=== PATIENT | male | born 1950 | race Caucasian/White ===

== ENCOUNTER 2016-09-22 10:49 | Emergency (ER) | payer BC, OTHER ==
[2016-09-22 11:22] VITALS: BP 135/87; PULSE 84; TEMP 97.7; BMI 24.0
[2016-09-22] MEDS ORDERED: IBUPROFEN 600 MG TABLET (FP) PO ONE ×2 (12:14→12:16)
--- NOTE | 2016-09-22 12:20 | PDOC ---
History of Present Illness - General Chief Complaint: Injury Stated Complaint: FALL, LT ARM PAIN Time Seen by Provider: 09/22/16 11:58 History Source: Patient Exam Limitations: No Limitations - History of Present Illness Initial Comments: 09/22/16 12:14 66-year-old male with no past medical history presents the ED with complaints of left arm and left shoulder pain after falling at work at the [employer]. Patient states tripped and landed on his elbow causing discomfort to the affected area and to his left shoulder. Patient denies previous injury to the affected area and denies any sensory changes distally patient states is able to move the arm but has pain with lateral movement. Patient states on no blood thinners or has no clotting disorders. Occurred: reports: just prior to arrival Severity: reports: mild Pain Location: reports: upper extremity Method of Injury: Yes: fall Modifying Factors: improves with: None Loss of Consciousness: no loss of consciousness Associated Symptoms (Fall): denies symptoms Past History - Past Medical History Allergies/Adverse Reactions: Allergies Allergy/AdvReac Type Severity Reaction Status Date / Time No Known Allergies Allergy Verified 09/22/16 11:21 Home Medications: Ambulatory Orders NK [No Known Home Medication] 09/22/16 Hypercholesterolemia: Yes - Psycho/Social/Smoking Cessation Hx Suicidal Ideation: No Smoking History: Never smoked Patient Lives Alone: No Lives with/in: spouse/SO Review of Systems - Review of Systems Able to Perform ROS?: Yes Constitutional: No: Symptoms Reported Respiratory: No: Symptoms reported Cardiac (ROS): No: Symptoms Reported Musculoskeletal: Yes: Joint Pain (left shoulder). No: Back Pain, Muscle Pain, Neck Pain Integumentary: No: Symptoms Reported, Bruising, Erythema Neurological: No: Symptoms reported, Numbness, Tingling *Physical Exam - Vital Signs Last Vital Signs Temp Pulse Resp BP Pulse Ox 97.7 F 84 18 135/87 99 09/22/16 11:18 09/22/16 11:18 09/22/16 11:18 09/22/16 11:18 09/22/16 11:18 - Physical Exam General Appearance: Yes: Nourished, Appropriately Dressed. No: Apparent Distress Neck: positive: Tender, Supple. negative: Decreased range of motion Extremity: positive: Normal Capillary Refill, Normal Inspection, Normal Range of Motion (nable to perfom lateral raise greater than 80 degress. no ac joint tenderness, no edema and no ecchymosis. No crepitus or deformity). negative: Tender Neurologic: positive: Motor Strength 5/5 (5+ shoulder shrug and hand grasp of the left arm.). negative: Sensory Deficit Medical Decision Making - Medical Decision Making 09/22/16 12:18 Patient complaining of left shoulder pain at this time. Patient states was at work when the injury occurred. Patient on exam had no point tenderness but did have limited range of motion with lateral raise. Patient was likely rotator cuff injury versus muscle strain. Patient ordered for Motrin and will discharge home with supportive care and referral to orthopedist if pain continues greater than 5 days. *DC/Admit/Observation/Transfer Diagnosis at time of Disposition: Rotator cuff (capsule) sprain Qualifiers: Encounter type: initial encounter Laterality: left Qualified Code(s): S43.422A - Sprain of left rotator cuff capsule, initial encounter - Discharge Dispostion Disposition: HOME Condition at time of disposition: Good - Referrals Referrals: Diomedes Biggs MD [Staff Physician] - - Patient Instructions Printed Discharge Instructions: Rotator Cuff Injury Additional Instructions: Please take 400-600 milligrams every 6-8 hours for discomfort. Apply ice to the affected area for the next 3 days s much as you can tolerate. If pain continues greater than 5 days please follow-up with referred orthopedist.
== END 2016-09-22 12:25 | disposition home or self-care (01) ==
LOC: JERFT 10:49
DX: S43.422A Sprain of left rotator cuff capsule, initial encounter (principal); W18.39XA Other fall on same level, initial encounter; Y93.89 Activity, other specified; Y92.63 Factory as the place of occurrence of the external cause; Y99.0 Civilian activity done for income or pay; E78.00 Pure hypercholesterolemia, unspecified
CPT/HCPCS: 99281-25